=== PATIENT | male | born 1950 | race Caucasian/White ===

== ENCOUNTER 2021-07-03 09:33 | Outpatient (CLI) | payer OTHER, SELFPAY ==
--- NOTE | 2021-07-03 09:56 | USCV_ITS ---
Freeman Bairon Age: 71 Gender: M : 1950 Exam Date: 07/03/2021 10:09 Ordering Phys: Carleen Butler Technologist: Quiana Matta Exam Location: [facility] Indication: Leg Pain Risk Factors: Leg Pain Previous Vascular Surgery: None RIGHT LEFT BP: 158.0 / 99.00 BP: 181.0/ 110.00 0 0 Waveform Velocity (cm/s) Velocity (cm/s) Waveform Triphasic 66.0 Iliac Prox 73.1 Triphasic Triphasic Iliac Mid Triphasic 71.9 67.1 Triphasic 60.1 Iliac Distal 70.5 Triphasic Triphasic 71.0 BREAK OFF WORKER 71.2 Triphasic Triphasic 58.3 SFA Prox 73.8 Triphasic Triphasic 62.4 SFA Mid 60.0 Triphasic Triphasic 58.3 SFA Dist 51.5 Triphasic Triphasic 60.3 POP 42.9 Biphasic Triphasic 103.3 CASER UP 38.6 Biphasic Triphasic 28.6 DPA 48.9 Biphasic 1.0 [place] 1.0 FINDINGS RT CASER UP 160 RT DPA 180 LT CASER UP 180 DPA 150 Hypoechoic area measuring 5.74 x 1.76 cm in the right popliteal region Minimal scattered plaques in the iliac and femoral arteries bilaterally Near normal arterial Doppler waveforms bilaterally Normal Doppler flow velocities Resting [place]SA[place] of 1.0 on both sides CONCLUSIONS Normal resting ABIs bilaterally Minimal scattered plaques in the iliac and femoral arteries bilaterally No significant arterial obstruction, based on the above findings Dr Jaciel Mcnair MD [facility] (Electronically Signed) Final Date: 04 Jul 2021 09:42 S
== END 2021-07-03 09:34 | disposition home or self-care (01) ==
LOC: RAD 09:35
PROVIDERS: Family Provider Family Medicine; PCP Family Medicine; Visit Provider Nurse Practitioner
DX: M79.605 Pain in left leg (principal); M79.604 Pain in right leg
CPT/HCPCS: 93925

== ENCOUNTER → 2021-08-24 10:38 | Outpatient (BNVA) | payer OTHER, SELFPAY | PROVIDERS: Family Provider Family Medicine; PCP Family Medicine; Referring Provider Nurse Practitioner; Visit Provider Internal Medicine | DX: M15.2 Bouchard's nodes (with arthropathy) (principal); M77.40 Metatarsalgia, unspecified foot; M20.40 Other hammer toe(s) (acquired), unspecified foot; M10.9 Gout, unspecified | CPT/HCPCS: 20600; 20605; 73120; 80053; 85025; 86200; 86431; 99204 ==

== ENCOUNTER 2022-10-31 11:02 | Outpatient (CLI) | payer OTHER, SELFPAY | END 2022-10-31 11:03 | disposition home or self-care (01) | PROVIDERS: Family Provider Family Medicine; PCP Family Medicine; Visit Provider Nurse Practitioner Family | DX: R05.3 Chronic cough (principal) | CPT/HCPCS: 94010 ==

== ENCOUNTER 2023-02-19 13:49 | Outpatient (CLI) | payer OTHER, SELFPAY ==
--- NOTE | 2023-02-19 13:53 | USCV_ITS ---
Bairon Millard Age: 73 Gender: M : 1950 Exam Date: 02/19/2023 14:01 Ordering Phys: Narinder Flores XX Technologist: CT Exam Location[place] [facility] [place] Indication: cad BP: 182 / 100 HR: 76 Rhythm: Sinus Technical Quality: Adequate MEASUREMENTS (Male / Female) Normal Values 2D ECHO LV Chamber Size 4.4 cm RV Chamber Size 3.8 cm LVOT Diameter 2.1 cm LV Ejection Fraction MOD 2C 56.9 % LV Ejection Fraction 2C AL 57.3 % LA Diameter 3.8 cm LA Width 3.1 cm LA Height 5.0 cm RA Width 3.8 cm RA Height 4.6 cm Aorta at Sinotubular Diameter 2.7 cm M-MODE Aortic Annulus Diameter 3.4 cm LA Ao Ratio MM 1.3 MV E Point Septal Separation 0.9 cm DOPPLER AV Peak Velocity 141.0 cm/s LVOT Peak Velocity 120.0 cm/s AV Area Cont Eq vti 3.5 cm squared AV Area Cont Eq pk 3.0 cm squared MV E' Velocity 7.0 cm/s TR Peak Velocity 121.0 cm/s TR Peak Gradient 5.9 mmHg TV Peak E Velocity 61.0 cm/s Right Atrial Pressure 3.0 mmHg Pulmonary Artery Systolic Pressu 8.9 mmHg FINDINGS Left Ventricle Left ventricle is normal in size. LV systolic function is normal with EF of 50- 55%. Septal motion is consistent with conduction abnormality. Grade 1 diastolic dysfunction Right Ventricle Normal in size and function Right Atrium normal in size Left Atrium normal in size Mitral Valve Structurally normal mitral valve. Mild mitral regurgitation. Aortic Valve Grossly normal. No significant stenosis or regurgitation seen. Tricuspid Valve Trace tricuspid regurgitation. Insufficient TR jet to calculate RVSP. Pulmonic Valve Not well visualized Pericardium Normal Aorta Normal in size IVC Appears to be normal CONCLUSIONS LV systolic function is normal with EF of 50 to 55%. Mild mitral regurgitation Trace tricuspid regurgitation. No comparison studies are available Cameron Polk MD (Electronically Signed) Final Date: 19 February 2023 15:34 S
== END 2023-02-19 13:50 | disposition home or self-care (01) ==
PROVIDERS: Family Provider Family Medicine; PCP Family Medicine; Visit Provider Chiropractor
DX: I25.10 Atherosclerotic heart disease of native coronary artery without angina pectoris (principal); I08.1 Rheumatic disorders of both mitral and tricuspid valves
CPT/HCPCS: 93306

== ENCOUNTER 2024-08-31 09:54 | Outpatient (CLI) | payer OTHER, SELFPAY ==
--- NOTE | 2024-08-31 10:02 | MR_ITS ---
WS: [id number] MRI LEFT SHOULDER NONCONTRAST TECHNIQUE: Sagittal T2, coronal T1, T2 and proton density imaging. Axial gradient PDE imaging. CLINICAL INFORMATION: LEFT SHOULDER PAIN W/ROM PALPATION COMPARISON: None. FINDINGS: Advanced degenerative arthritis AC joint with mild downsloping of the acromion. Small amount of subacromial subdeltoid fluid. Mild narrowing of the subacromial space. Impingement of distal supraspinatus. Advanced degenerative arthritis at the glenohumeral articulation. Tendinopathy supraspinatus. Tiny bursal surface tears distal infraspinatus. Tiny infraspinatus insertional tear. Normal teres minor. Subscapularis tendon appears intact. Biceps tendon appears intact within the bicipital groove. Partial tear with tendinopathy intra- articular biceps tendon with T2 signal abnormality and irregularity. Degenerative fraying of the glenoid labrum. Hypertrophic changes about the glenoid. Subchondral cystic degenerative changes of the greater tuberosity. MR/MR shoulder LT wo con* [id number] IMPRESSION: 1. 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 2. Tendinopathy supraspinatus with T2 signal abnormality. 3. Small bursal surface and insertional tears infraspinatus. 4. Partial intrasubstance tear with tendinopathy intra-articular biceps tendon . 5. Advanced degenerative narrowing glenohumeral articulation with hypertrophic changes and [id number] articulation. 6. Subchondral cystic change of the greater tuberosity.
== END 2024-08-31 09:55 | disposition home or self-care (01) ==
LOC: RAD 09:55
PROVIDERS: PCP Family Medicine; Visit Provider Nurse Practitioner Family
DX: M19.012 Primary osteoarthritis, left shoulder (principal); M75.102 Unspecified rotator cuff tear or rupture of left shoulder, not specified as traumatic
CPT/HCPCS: 73221

== ENCOUNTER → 2024-10-15 13:27 | Outpatient (BNVA) | payer OTHER, SELFPAY | PROVIDERS: PCP Family Medicine; Visit Provider Nurse Practitioner Family | DX: L81.4 Other melanin hyperpigmentation (principal); L57.8 Other skin changes due to chronic exposure to nonionizing radiation; L57.0 Actinic keratosis; L82.0 Inflamed seborrheic keratosis; L29.89 Other pruritus; L53.8 Other specified erythematous conditions; D48.5 Neoplasm of uncertain behavior of skin | CPT/HCPCS: 11102; 17004; 17110; 99203 ==

== ENCOUNTER → 2024-11-18 11:44 | Outpatient (BNVA) | payer OTHER, SELFPAY | PROVIDERS: PCP Family Medicine; Visit Provider Dermatology | DX: C44.519 Basal cell carcinoma of skin of other part of trunk (principal); L57.0 Actinic keratosis | CPT/HCPCS: 17000; 17262 ==